=== PATIENT | female | born 1975 | race Caucasian/White ===

== ENCOUNTER 2017-03-22 23:28 | Emergency (ER) | payer MEDICAID ==
[2017-03-23] MEDS ORDERED: Sodium Chloride 0.9% 1,000 ML IV STA (00:44)
--- NOTE | 2017-03-23 00:48 | ED PDOC ---
Arrival/HPI - General Historian: Patient - History of Present Illness Symptom Onset: Gradual Symptom Course: Unchanged Activities at Onset: Rest, Light Context: Home <Alyssa Tejada - Last Filed: 03/23/17 03:25> <Valdemar Ye - Last Filed: 03/23/17 04:35> - General Chief Complaint: Medical Clearance Time Seen by Provider: 03/23/17 00:43 - History of Present Illness Narrative History of Present Illness (Text): 03/23/17 00:44 41 year old female, whose past medical history includes hemorrhoids, who presents to the Emergency department complaining of rectal pain throughout the day with associated yellowish discharge from the area. Patient denies any constipation but notes she was straining while moving her bowels 3 days prior. Patient also reports lower abdominal pain and lower back discomfort today. Patient denies any fever, chills, chest pain, shortness of breath, nausea, vomiting, diarrhea, neck pain, headache, dizziness, or any other complaints. (Alyssa Tejada) Past Medical History - Provider Review Nursing Documentation Reviewed: Yes - Infectious Disease Hx of Infectious Diseases: None - Tetanus Immunization Tetanus Immunization: Unknown - Past Medical History Past Medical History: No Previous - Psychiatric Hx Psychophysiologic Disorder: No Hx Substance Use: No - Surgical History Hx Section: Yes (9yrs) - Anesthesia Hx Anesthesia: Yes - Suicidal Assessment Feels Threatened In Home Enviroment: No <Alyssa Tejada - Last Filed: 03/23/17 03:25> Family/Social History - Physician Review Nursing Documentation Reviewed: Yes Family/Social History: No Known Family HX Smoking Status: Never Smoked Hx Alcohol Use: No Hx Substance Use: No Hx Substance Use Treatment: No <Alyssa Tejada - Last Filed: 03/23/17 03:25> Allergies/Home Meds <Alyssa Tejada - Last Filed: 03/23/17 03:25> <Valdemar Ye - Last Filed: 03/23/17 04:35> Allergies/Adverse Reactions: Allergies No Known Allergies Allergy (Verified 03/23/17 00:14) Review of Systems - Physician Review All systems were reviewed & negative as marked: Yes - Review of Systems Constitutional: Normal. absent: Fevers Eyes: Normal ENT: Normal Respiratory: Normal. absent: SOB, Cough Cardiovascular: Normal. absent: Chest Pain Gastrointestinal: Abdominal Pain, Other (+rectal pain) Genitourinary Female: Normal Musculoskeletal: Back Pain (+lower back discomfort) Skin: Normal Neurological: Normal. absent: Headache, Dizziness Endocrine: Normal Hemo/Lymphatic: Normal Psychiatric: Normal <Alyssa Tejada - Last Filed: 03/23/17 03:25> Physical Exam Vital Signs Reviewed: Yes Temperature: Afebrile Blood Pressure: Normal Pulse: Regular Respiratory Rate: Normal Appearance: Positive for: Well-Appearing, Non-Toxic, Comfortable Pain Distress: None Mental Status: Positive for: Alert and Oriented X 3 - Systems Exam Head: Present: Atraumatic, Normocephalic Pupils: Present: PERRL. No: Sluggish, Non-Reactive, Pinpoint, Other Extroacular Muscles: Present: EOMI Conjunctiva: Present: Normal Mouth: Present: Moist Mucous Membranes Neck: Present: Normal Range of Motion Respiratory/Chest: Present: Clear to Auscultation, Good Air Exchange. No: Respiratory Distress, Accessory Muscle Use Cardiovascular: Present: Regular Rate and Rhythm, Normal S1, S2. No: Murmurs Abdomen: Present: Tenderness (Diffuse lower abdominal tenderness), Normal Bowel Sounds. No: Distention, Peritoneal Signs Rectal: Present: Rectal Tenderness, Normal Rectal Tone, Other (+ erythematous lump noted to rectum with tenderness at 9'0clock. Scribe Amairani present as agent ticketing gate). No: Melena, Fissures Back: Present: Normal Inspection Upper Extremity: Present: Normal Inspection. No: Cyanosis, Edema Lower Extremity: Present: Normal Inspection. No: Edema Neurological: Present: GCS=15, CN II-XII Intact, Speech Normal Skin: Present: Warm, Dry, Normal Color. No: Rashes Psychiatric: Present: Alert, Oriented x 3, Normal Insight, Normal Concentration <Alyssa Tejada - Last Filed: 03/23/17 03:25> Medical Decision Making <Alyssa Tejada - Last Filed: 03/23/17 03:25> - RAD Interpretation [employer] Worker: Radiologist <Valdemar Ye - Last Filed: 03/23/17 04:35> ED Course and Treatment: 03/23/17 00:44 41yr old female with rectal pain and diffuse abdominal tenderness worsened today. will r/o perirectal abscess due to severity of pain surround rectum and diffuse lower abdominal tenderness. toradol given for pain NS iv bolus cbc wnl cmp wnl CT abd/pelvis with IV contrast; pt reassessment; pt feeling better after toradol. 03/23/17 03:25 case signed out to dr. ye pending CT results and disposition. (Alyssa Tejada) 03/23/17 03:51 reviewed radiology, CT Abdomen and Pelvis shows: - Bladder findings which could be due to mild cystitis. Recommend correlation with urinalysis results. - Otherwise, no evidence of significant acute process. - See above for remaining findings. 03/23/17 04:15 On re-evaluation, the patient feels better and is in no acute distress. I have discussed the results and plan with the patient, who expresses understanding. Patient in agreement with plan to discharged home. Patient is stable for discharge. Patient was instructed to follow up with physician/clinic in 1-2 days or return if symptoms worsen or new concerning symptoms arise. (Valdemar Ye) - Lab Interpretations Lab Results: 03/23/17 01:15 03/23/17 01:15 Lab Results 03/23/17 01:30: Urine Color Yellow, Urine Appearance Sl cloudy, Urine pH 6.0, Ur Specific [place] >= 1.030, Urine Protein Trace H, Urine Glucose (UA) Negative , Urine Ketones Negative, Urine Blood Large H, Urine Nitrate Negative, Urine Bilirubin Small H, Urine Urobilinogen 2.0 H, Ur Leukocyte Esterase Negative, Urine RBC 2 - 5, Urine WBC 0 - 2, Ur Epithelial Cells 6 - 8, Calcium Oxalate Crystal Few, Urine Bacteria Rare 03/23/17 01:15: WBC 8.1, RBC 4.72, Hgb 12.7, Hct 37.8, MCV 80.1, MCH 26.9, MCHC 33.6, RDW 12.6, Plt Count 191, MPV 11.7 H, Gran % 63.3, Lymph % (Auto) 29.0, [place] % (Auto) 6.5 H, Eos % (Auto) 1.0 L, Baso % (Auto) 0.2, Gran # 5.13, Lymph # 2.4, [place] # 0.5, Eos # 0.1, Baso # 0.02 03/23/17 01:15: Sodium 140, Potassium 3.7, Chloride 105, Carbon Dioxide 26, Anion Gap 13, BUN 13, Creatinine 1.0, Est GFR ( Amer) > 60, Est GFR (Non- Af Amer) > 60, Random Glucose 104, Calcium 9.0, Total Bilirubin 1.0, AST 39, ALT 35, Alkaline Phosphatase 55, Total Protein 7.3, Albumin 4.1, Globulin 3.3, Albumin/Globulin Ratio 1.2 - RAD Interpretation Narrative RAD Interpretations (Text): CT Abdomen and Pelvis shows: LIMITATIONS: Mild streak/motion artifact. Artifact related to the patient's body habitus. LOWER THORAX: No infiltrate seen In the lung bases. ABDOMEN: LIVER: Fatty infiltration of the liver. No acute abnormality of the liver identified. GALLBLADDER AND BILE DUCTS: No CT evidence of acute cholecystitis. No evidence of significant biliary ductal dilatation. PANCREAS: No CT evidence of acute pancreatitis. SPLEEN: No acute abnormality of the spleen identified. ADRENALS: No acute abnormality of the adrenal glands identified. KIDNEYS AND URETERS: No acute abnormality of the kidneys identified. No evidence of significant hydrouereteronephrosis. STOMACH AND BOWEL: No acute abnormality of the bowel identified. No evidence of fecal impaction or perirectal abscess. No evidence of bowel obstruction. No evidence of diffuse colitis/pancolitis. No evidence of diverticulitis. APPENDIX: Appendix is seen, and is within normal limits in appearance. PELVIS: BLADDER: Mild infiltration of the fat around the bladder is noted. Bladder wall appears mildly thickened. Findings could be signs of mild cystitis. REPRODUCTIVE: Small 2 cm cystic lesion with a thin, enhancing and collapsed soft tissue rim in the right ovary. This has an appearance suggestive of a recently ruptured/ involuting ovarian cyst, such as a corpus luteal cyst. Followup pelvic ultrasound as clinically indicated. Bilateral fallopian tube stents in place. ABDOMEN and PELVIS: INTRAPERITONEAL SPACE: Small amount of free fluid in the cul-de-sac. This is most likely physiologic in nature. No evidence of free air. BONES/JOINTS: No acute fractures or other acute bony abnormality noted. SOFT TISSUES: No acute abnormality of the visualized soft tissues identified. VASCULATURE: No evidence of abdominal aortic aneurysm. No evidence of periaortic hemorrhage. LYMPH NODES: No evidence of diffuse lymphadenopathy. IMPRESSION: - Bladder findings which could be due to mild cystitis. Recommend correlation with urinalysis results. - Otherwise, no evidence of significant acute process. - See above for remaining findings. (Valdemar Ye) Radiology Orders: 03/23/17 00:44 ABD & PELVIS IV CONTRAST ONLY [CT] Stat - Medication Orders Current Medication Orders: Discontinued Medications Sodium Chloride (Sodium Chloride 0.9%) 1,000 mls @ 999 mls/hr IV .Q1H1M STA Stop: 03/23/17 01:44 Last Admin: 03/23/17 01:37 Dose: 999 mls/hr Iohexol (Omnipaque 350 100 Ml) Confirm Administered Dose 350 mg .ROUTE .STK-MED ONE Stop: 03/23/17 02:15 Ketorolac Tromethamine (Toradol) 30 mg IVP STAT STA Stop: 03/23/17 00:45 Last Admin: 03/23/17 01:38 Dose: 30 mg - Scribe Statement The provider has reviewed the documentation as recorded by the Scribe <Alyssa Tejada - Last Filed: 03/23/17 03:25> <Valdemar Ye - Last Filed: 03/23/17 04:35> - Scribe Statement Amairani Owens All medical record entries made by the Scribe were at my direction and personally dictated by me. I have reviewed the chart and agree that the record accurately reflects my personal performance of the history, physical exam, medical decision making, and the department course for this patient. I have also personally directed, reviewed, and agree with the discharge instructions and disposition. (Alyssa Tejada) Disposition/Present on Arrival - Present on Arrival Any Indicators Present on Arrival: No History of DVT/PE: No History of Uncontrolled Diabetes: No Urinary Catheter: No History of Decub. Ulcer: No History Surgical Site Infection Following: None - Disposition Have Diagnosis and Disposition been Completed?: Yes Patient Plan: Discharge <Alyssa Tejada - Last Filed: 03/23/17 03:25> - Present on Arrival Any Indicators Present on Arrival: No - Disposition Have Diagnosis and Disposition been Completed?: Yes Disposition Time: 04:22 <Valdemar Ye - Last Filed: 03/23/17 04:35> - Disposition Diagnosis: Hemorrhoids Disposition: HOME/ ROUTINE Patient Problems: Current Active Problems Problem Status Onset Hemorrhoids Acute Condition: GOOD Discharge Instructions (ExitCare): Hemorrhoids (ED) Additional Instructions: increase fluids colace; twice daily increase fiber anusol; apply three times daily to affected after; NOT FOR INTERNAL USE Follow up with the GI doctor within the next 2 days Follow up with the primary care physician within the next 2 days. Prescriptions: Docusate [Colace] 100 mg PO BID #30 cap Hydrocortisone 2.5% (Rectal) [Anusol-HC] 1 appl TP BID #1 tube Ibuprofen [Motrin] 600 mg PO Q6H PRN #20 tab PRN Reason: pain/fever reduction Referrals: Phil Cox MD [Medical Doctor] - Follow up with primary Abel Mario MD [Staff Provider] - Follow up with primary Forms: WORK NOTE
[2017-03-23 01:23] LABS: ADD MANUAL DIFF? NO
[2017-03-23 01:27] LABS: BASO # 0.02 K/mm3 (0.0-2.0); BASO % 0.2 % (0.0-3.0); EOS # 0.1 (0.0-0.7); GRAN # 5.13 (1.4-6.5); GRAN % 63.3 % (50.0-68.0); HEMATOCRIT 37.8 % (36.0-48.0); LYMPH # 2.4 (1.2-3.4); MEAN CELL VOLUME 80.1 fL (80.0-105.0); MEAN CORPUSCULAR HEMOGLOBIN 26.9 pg (25.0-35.0); MEAN CORPUSCULAR HGB CONC 33.6 g/dl (31.0-37.0); MEAN PLATELET VOLUME 11.7 fl (7.0-11.0); MONO # 0.5 (0.1-0.6); MONO % 6.5 % (1.0-6.0); PLATELET COUNT 191 10^3/uL (120.0-450.0); RED CELL DISTRIBUTION WIDTH 12.6 % (11.5-14.5); WHITE BLOOD COUNT 8.1 10^3/ul (4.5-11.0)
[2017-03-23 01:42] LABS: URINE BILIRUBIN SMALL (NEGATIVE); URINE BLOOD LARGE (NEGATIVE); URINE GLUCOSE (UA) NEGATIVE (NEGATIVE); URINE KETONE NEGATIVE (NEGATIVE); URINE LEUKOCYTE ESTERASE NEGATIVE Leu/uL (NEGATIVE); URINE PROTEIN TRACE mg/dL (<30 mg/dL)
[2017-03-23 01:48] LABS: URINE APPEARANCE SL CLOUDY (CLEAR); URINE COLOR YELLOW (YELLOW)
[2017-03-23 01:50] LABS: ALB/GLOB RATIO 1.2 (1.1-1.8); ALKALINE PHOSPHATASE 55 U/L (38-133); ALT/SGPT 35 U/L (7-56); AST/SGOT 39 U/L (15-39); BLOOD UREA NITROGEN 13 mg/dL (7-21); CARBON DIOXIDE 26 mmol/L (21-33); CHLORIDE 105 mmol/L (98-107); GFR AFRICAN-AMERICAN > 60; GLUCOSE,RANDOM 104 mg/dL (70-110); POTASSIUM 3.7 mmol/L (3.6-5.0); SODIUM 140 mmol/L (132-148); TOTAL PROTEIN 7.3 g/dL (5.8-8.3)
[2017-03-23 01:54] LABS: URINE BACTERIA RARE (NEG); URINE CALCIUM OXALATE CRYSTALS FEW /hpf; URINE WBC 0 - 2 /hpf (0-6)
[2017-03-23] MEDS ORDERED: Iohexol 350 MG/100 ML VIAL ONE (02:14)
--- NOTE | 2017-03-23 03:47 | CT ---
EXAM: CT Abdomen and Pelvis With Intravenous Contrast CLINICAL HISTORY: 41 years old, female; Pain; Abdominal pain; Generalized; Additional info: Abd pain/rectal pain TECHNIQUE: Axial computed tomography images of the abdomen and pelvis with intravenous contrast. This CT exam was performed using one or more of the following dose reduction techniques: automated exposure control, adjustment of the mA and/or kV according to patient size, and/or use of iterative reconstruction technique. Coronal and sagittal reformatted images were created and reviewed. CONTRAST: 96 mL of OMNI 350 administered intravenously. EXAM DATE/TIME: 03/23/2017 12:44 AM COMPARISON: No relevant prior studies available. FINDINGS: LIMITATIONS: Mild streak/motion artifact. Artifact related to the patient's body habitus. LOWER THORAX: No infiltrate seen In the lung bases. ABDOMEN: LIVER: Fatty infiltration of the liver. No acute abnormality of the liver identified. GALLBLADDER AND BILE DUCTS: No CT evidence of acute cholecystitis. No evidence of significant biliary ductal dilatation. PANCREAS: No CT evidence of acute pancreatitis. SPLEEN: No acute abnormality of the spleen identified. ADRENALS: No acute abnormality of the adrenal glands identified. KIDNEYS AND URETERS: No acute abnormality of the kidneys identified. No evidence of significant hydrouereteronephrosis. STOMACH AND BOWEL: No acute abnormality of the bowel identified. No evidence of fecal impaction or perirectal abscess. No evidence of bowel obstruction. No evidence of diffuse colitis/pancolitis. No evidence of diverticulitis. APPENDIX: Appendix is seen, and is within normal limits in appearance. PELVIS: BLADDER: Mild infiltration of the fat around the bladder is noted. Bladder wall appears mildly thickened. Findings could be signs of mild cystitis. REPRODUCTIVE: Small 2 cm cystic lesion with a thin, enhancing and collapsed soft tissue rim in the right ovary. This has an appearance suggestive of a recently ruptured/involuting ovarian cyst, such as a corpus luteal cyst. Followup pelvic ultrasound as clinically indicated. Bilateral fallopian tube stents in place. ABDOMEN and PELVIS: INTRAPERITONEAL SPACE: Small amount of free fluid in the cul-de-sac. This is most likely physiologic in nature. No evidence of free air. BONES/JOINTS: No acute fractures or other acute bony abnormality noted. SOFT TISSUES: No acute abnormality of the visualized soft tissues identified. VASCULATURE: No evidence of abdominal aortic aneurysm. No evidence of periaortic hemorrhage. LYMPH NODES: No evidence of diffuse lymphadenopathy. IMPRESSION: - Bladder findings which could be due to mild cystitis. Recommend correlation with urinalysis results. - Otherwise, no evidence of significant acute process. - See above for remaining findings.
[2017-03-23 03:50] VITALS: BP 97/60; PULSE 66; RESP 17; TEMP 97.6; O2SAT 100
[2017-03-23 03:52] VITALS: BMI 34.9
== END 2017-03-23 05:09 | disposition home or self-care (01) ==
LOC: ED 23:28
DX: K64.9 Unspecified hemorrhoids (principal)
CPT/HCPCS: 74177; 80053; 81001; 85025; 96374; 99282; J1885; J7040; Q9967